=== PATIENT | female | born 1960 | race Caucasian/White ===

== ENCOUNTER → 2023-12-04 01:42 | Outpatient (CLI) | payer MEDICAID, SELFPAY ==
--- NOTE | 2023-12-04 | DI.NM_ITS ---
APPROVED REPORT Exam: Pharmacologic Patient Location: Out-Patient Room/Bed: Stress Nurse: Niurka Euceda RN and Shira Oliva RN Ordering Provider:MOODY ZABALA, Contact Number: [phone] BMI: 23.23 Baseline Rhythm: Sinus Rhythm. Comment: Frequent PVC's. Indications: Epigastric Pain; Hypertension; Smoker. Medical History Medical History: Alcohol Abuse; Chronic Obstructive Pulmonary Disease; Depression; Epigastric Pain; H yperlipidemia; Hypertension; Interstitial Lung Disease; Overweight; Insomnia. Cardiac Medications: Advair; Amlodipine; Atorvastatin; Buspirone; Hydroxyzine; Omeprazole; Spiriva; S ucralfate; Ventolin. Allergies: None. Cardiac Risk Factors: Hyperlipidemia; Hypertension; COPD; Current Smoker. Previous Cardiac Procedures: None. Pretest Chest Pain Characteristics: None. Exercise History: Sedentary. Physical Disabilities: Left Ankle Injury; Frequent Falls. Lung Sounds: Diminished in bilateral posterior bases; Clear bilaterally throughout otherwise in anter ior and posterior. Heart Sounds: S1 and S2 auscultated. Stress Test Details Test: Pharmacologic stress testing performed using 0.4 mg of regadenoson per 5 mL given IV over 10 s econds. Reason for pharmacologic stress test: physical limitation. Nuclear Acquisition: Rest Tc-99m/Stress Tc-99m 1 day Rest Isotope: Tc-99m Sestamibi. Dose: 10.7 Date: 12/04/2023 Injection Time: 1020 Stress Isotope: Tc-99m Sestamibi. Dose: 33.0 Date: 12/04/2023 Injection Time: 1155 HR Resting HR Supine: 84 bpm Max Heart Rate (APMHR): 158.894515 bpm Target HR (85% APMHR): 134.245255 bpm Max HR Achieved: 138 bpm % of APMHR: 87.34 Recovery HR: 119 bpm BP Resting BP Supine: 138/84 mmHg Max BP: 138/84 mmHg Recovery BP: 126/84 mmHg ECG Resting ECG: Sinus Rhythm. Ectopy: Frequent PVC's. Stress ECG: Sinus Tachycardia. ST Change: No significant ST segment changes noted. Arrhythmia: Frequent PVC's. Recovery ECG: Sinus Tachycardia. Recovery ST Change: No significant ST segment changes noted. Recovery Arrhythmia: Frequent PVC's. Clinical Stress Symptoms: Moderate SOB; Nausea. Angina Score: None Rate Pressure Product: 60099 Stress ECG Conclusion 1. Resting electrocardiogram was normal 2. Patient underwent testing using pharmacologic stress with regadenoson 3. Peak heart rate achieved was 87% of maximal predicted for age 4. There was no electrocardiographic evidence of myocardial ischemia 5. PVCs were seen 6. See MPI report Stress Test Summary STAGE HR BP SpO2 Symptoms NOTES Supine 84 138/84 97 1 min post Lexiscan injection 90 138/60 99 Moderate SOB; Nausea. 3 min post Lexiscan injection 130 130/84 98 Mild SOB; Nausea. 6 min post Lexiscan injection 120 126/84 98 SOB and Nausea are resolved. 9 min post Lexiscan injection 119 Pt. met her target heart rate with Lexiscan while sitting in semi-Galvan's on the stretcher. Pt. stat ed to nursing staff that she had to urgently use the restroom to have a BM and ...can't wait any keiko dileep. Pt. was removed from the ECG machine at a heart rate of 119 and was escorted to the restroom by nursing staff. Dr. Rangel was notified of the pt.'s recovery heart rate and the situation associated w ith it. Dr. Rangel had no concerns and was fine with the patient proceeding to after stress imaging. Pt . was then escorted from the restroom to Diagnostic Imaging by nursing staff. Pt. ambulated and was c onversing pleasantly with nursing staff. MPI Conclusion Myocardial perfusion is normal. There is no ischemia or evidence of prior infarction Ejection fraction is 65% with normal wall motion Radiologist Interpretation Radiologist agrees with [employer]'s Interpretation. Radiologist Interpretation by: Erik Gamboa MD Interpretation Date/Time: 12/04/2023 20:23:55
[2023-12-04] MEDS: Regadenoson 0.4 MG/5 ML SYR IVP (11:54)
== END ==
PROVIDERS: PCP Internal Medicine; Visit Provider Internal Medicine
DX: R10.13 Epigastric pain (principal); I10 Essential (primary) hypertension
CPT/HCPCS: 78452; 93017; J2785